=== PATIENT | male | born 1975 | race Caucasian/White ===

== ENCOUNTER 2017-08-13 00:46 | Emergency (ER) | payer OTHER ==
[~2017-08-13] VITALS: Ht 170.2 cm; Wt 82.3 kg
[2017-08-13] MEDS ORDERED: LIDOCAINE 1%, 10ML ONE (02:36)
[2017-08-13] MEDS ORDERED: BACITRACIN ZINC OINT 500U/GM, 0.9 GM ONE (03:25)
[2017-08-13 03:34] VITALS: BP 113/74
== END 2017-08-13 03:35 | disposition home or self-care (01) ==
LOC: ED 03:34
DX: S61.210A Laceration without foreign body of right index finger without damage to nail, initial encounter (principal); W45.8XXA Other foreign body or object entering through skin, initial encounter; Y93.G1 Activity, food preparation and clean up; Y92.89 Other specified places as the place of occurrence of the external cause; Y99.8 Other external cause status
CPT/HCPCS: 12001; 99283

== ENCOUNTER 2019-09-22 18:22 | Day surgery (SDC) | payer OTHER ==
[~2019-09-22] VITALS: Ht 170.2 cm; Wt 79.0 kg
[2019-09-22] MEDS ORDERED: OMNIPAQUE 350 MG/ML, 100ML BOTTLE ONE (19:15)
[2019-09-22] MEDS ORDERED: SODIUM CHLORIDE 0.9% 1,000 ML IV ONE (19:17)
--- NOTE | 2019-09-22 19:18 | NUR ---
IV START. LABS DRAWN. MD AT BEDSIDE FOR ASSESSMENT.
[2019-09-22] MEDS ORDERED: SODIUM CHLORIDE FLUSH 10ML SYR IVF ONE (19:30)
[2019-09-22] MEDS ORDERED: KETOROLAC 30 MG/1 ML ONE (19:35)
[2019-09-22 19:38] LABS: BASOPHILS # (AUTO) 0.01 x10^3/uL (0-0.1); BASOPHILS % (AUTO) 0 % (0-1); EOSINOPHILS % (AUTO) 0 % (1-7); LYMPHOCYTES # (AUTO) 1.11 x10^3/uL (1-3.4); LYMPHOCYTES % (AUTO) 7 % (22-44); MD NO; MEAN CORPUSCULAR HEMOGLOBIN 30.5 pg (27.5-34.5); MEAN CORPUSCULAR VOLUME 89.6 fL (81-97); MEAN PLATELET VOLUME 7.3 fL (7.4-10.4); MONOCYTES # (AUTO) 1.15 x10^3/uL (0.2-0.8); MONOCYTES % (AUTO) 7 % (2-9); NEUTROPHILS # (AUTO) 13.95 x10^3/uL (1.8-6.8); NEUTROPHILS % (AUTO) 86 % (42-75); PLATELET COUNT 343 x10^3/uL (130-400); RED BLOOD COUNT 5.56 x10^6/uL (4.38-5.82); RED CELL DISTRIBUTION WIDTH 12.4 % (9.4-14.8)
--- NOTE | 2019-09-22 19:41 | NUR ---
MEDS ADMIN PER OCT. IVF RUNNING. PT AWARE OF UA. PT WILL GIVE SAMPLE AFTER IVF.
[2019-09-22 19:45] LABS: ALANINE AMINOTRANSFERASE 32 U/L (12-78); ALBUMIN 4.4 g/dL (3.4-5.0); ANION GAP 10 mmol/L (5-15); CHLORIDE 102 mmol/L (98-107); CREATININE 1.23 mg/dL (0.7-1.3)
[2019-09-22 19:47] LABS: ALKALINE PHOSPHATASE 137 U/L (45-117); BILIRUBIN,TOTAL 0.8 mg/dL (0.2-1.0); TOTAL PROTEIN 8.8 g/dL (6.4-8.2)
--- NOTE | 2019-09-22 19:53 | NUR ---
PT GOING TO CT
[2019-09-22] MEDS ORDERED: KETOROLAC 30 MG/1 ML IVPush ONE (20:00)
[2019-09-22 20:06] VITALS: BP 148/81
--- NOTE | 2019-09-22 20:07 | NUR ---
PT BACK FROM CT. PT RESTING ON [place]LE[place]. [place]. PT REMINDED OF NEED FOR URINE SAMPLE.
[2019-09-22] MEDS ORDERED: CEFOTETAN PMX 1GM/50ML 50 ML ONE (20:18)
[2019-09-22] MEDS ORDERED: CEFOTETAN PMX 1GM/50ML 50 ML IV ONE (20:30)
--- NOTE | 2019-09-22 20:40 | NUR ---
REPORT GIVEN TO TIEN RAMOS IN OR. PT UNDRESSED AND IN GOWN. IV ABX RUNNING PER OCT. PT AT BEDSIDE.
[2019-09-22] MEDS ORDERED: FENTANYL PF 100 MCG/2ML ONE ×2 (20:47)
[2019-09-22] MEDS ORDERED: MIDAZOLAM 1 MG/ML, 2ML ONE (20:47)
[2019-09-22] MEDS ORDERED: CEFAZOLIN 1,000 MG ONE ×2 (20:49→20:50)
[2019-09-22] MEDS ORDERED: PROPOFOL 10 MG/ML, 20ML ONE ×2 (20:49→20:50)
[2019-09-22] MEDS ORDERED: ROCURONIUM 10MG/ML,5ML ONE ×2 (20:49→20:50)
[2019-09-22] MEDS ORDERED: GLYCOPYRROLATE 0.2MG/1ML, 5ML ONE ×2 (20:49→20:50)
[2019-09-22] MEDS ORDERED: CEFOTETAN PMX 2GM/50ML 50 ML ONE (20:49)
[2019-09-22] MEDS ORDERED: NEOSTIGMINE 1 MG/ML, 10ML ONE ×2 (20:49→20:50)
[2019-09-22] MEDS ORDERED: SUCCINYLCHOLINE 20 MG/ML, 10ML ONE (20:50)
[2019-09-22] MEDS ORDERED: BUPIVACAINE/PF 0.5% ONE (21:19)
[2019-09-22] MEDS ORDERED: LABETALOL 5MG/ML, 20ML IV PRN (21:30)
[2019-09-22] MEDS ORDERED: OXYcodone 5 MG/5 ML ORAL.SOL UDC PO PRN (21:30)
[2019-09-22] MEDS ORDERED: ONDANSETRON 2MG/ML, 2ML IV PRN (21:30)
[2019-09-22] MEDS ORDERED: HYDROmorphone 2 MG/ML, 1ML IVPush PRN (21:30)
[2019-09-22] MEDS ORDERED: FENTANYL PF 100 MCG/2ML IV PRN (21:30)
[2019-09-22] MEDS ORDERED: MEPERIDINE/PF 25MG/ML,1ML IVPush PRN (21:30)
[2019-09-22] MEDS ORDERED: ACETAMINOPHEN 325 MG TABLET PO PRN (21:30)
[2019-09-22] MEDS ORDERED: hydrALAzine 20 MG/ML, 1ML IV PRN (21:30)
[2019-09-22] MEDS ORDERED: MORPHINE SULFATE 4 MG/ML, 1ML IVPush PRN (21:30)
[2019-09-22] MEDS ORDERED: SUGAMMADEX 200 MG/2 ML IVPush ONE (22:15)
[2019-09-22] MEDS ORDERED: OXYC-302 PO (23:41)
== END 2019-09-22 23:45 | disposition home or self-care (01) ==
LOC: ED 20:24 → SDC 20:24 → ED 23:20 → 4NE 23:20 → SDC 23:45 → 4NE 23:45 → ED 23:45
PROVIDERS: ATTEND Emergency Medicine
DX: K35.80 Unspecified acute appendicitis (principal); I10 Essential (primary) hypertension; Z88.0 Allergy status to penicillin
CPT/HCPCS: 36415; 44970; 74177; 80053; 83690; 85025; 88304; 96361; 96374; 96375; 99285; J0330; J0690; J1885; J2250; J2704; J2710; J3010; J3490; J7030; Q9967; G0378